=== PATIENT | male | born 1950 | race Caucasian/White ===

== ENCOUNTER → 2016-10-30 | Outpatient (CLI) | payer BC ==
[2016-10-30 18:22] LABS: Blood Urea Nitrogen 15 mg/dL (9-20); Non-African American GFR(MDRD) >60 (>60 ml/min/1.73 sqM)
--- NOTE | 2016-10-30 19:36 | CT ---
EXAMINATION TYPE: CT abdomen pelvis w con DATE OF EXAM: 10/30/2016 7:21 PM COMPARISON: NONE HISTORY: Abnormal prostate exam per patient and hematuria CT DLP: 1431.9 mGycm Automated exposure control for dose reduction was used. TECHNIQUE: Helical acquisition of images was performed from the lung bases through the pelvis. CONTRAST: Performed with Oral Contrast and with IV Contrast, patient injected with 100 mL of Omnipaque 300. FINDINGS: Lung bases are clear. There is no pleural effusion. The liver spleen pancreas appear normal. Bile gisela ts are not dilated. Gallbladder is somewhat contracted. There is no hydronephrosis. Kidneys have norm al size and contour. There is evidence of bilateral nonobstructing small renal calculi. There is a 1 cm cyst in the lower pole right kidney. There is a 2 cm hypodense rounded area on the medial upper po le left kidney that is probably an exophytic cortical cyst. I see no adrenal mass. There is no retroperitoneal adenopathy. Abdominal aorta is atheromatous. I see no intestinal wall thi ckening. There are no dilated loops. There are some prostatic calcifications. Bladder distends smooth ly. There is no sign of free fluid in the pelvis. Appendix appears normal. I see no bony destructive process. IMPRESSION: ATHEROSCLEROTIC VASCULAR DISEASE. NONOBSTRUCTING SMALL RENAL CALCULI. PROSTATIC CALCIFICATION. I DO N OT SEE A CAUSE FOR HEMATURIA. SMALL RENAL CORTICAL CYSTS. MILD SIGMOID DIVERTICULOSIS WITHOUT DIVERTI CULITIS.
== END | disposition home or self-care (01) ==
LOC: RADCTMAIN 17:34
PROVIDERS: ATTEND Urology
DX: N20.0 Calculus of kidney (principal); I70.8 Atherosclerosis of other arteries; N28.1 Cyst of kidney, acquired; N42.89 Other specified disorders of prostate; K57.30 Diverticulosis of large intestine without perforation or abscess without bleeding; Z91.048 Other nonmedicinal substance allergy status; Z91.013 Allergy to seafood; Z91.041 Radiographic dye allergy status
CPT/HCPCS: 82565; 84520; 74177; 36415; Q9967

== ENCOUNTER → 2016-11-25 | Outpatient (CLI) | payer BC ==
[2016-11-25 09:51] LABS: Blood Urea Nitrogen 21 mg/dL (9-20); Non-African American GFR(MDRD) >60 (>60 ml/min/1.73 sqM)
--- NOTE | 2016-11-25 12:19 | CT ---
EXAMINATION TYPE: CT pelvis w con DATE OF EXAM: 11/25/2016 COMPARISON: CT abdomen pelvis October 30, 2016. HISTORY: Prostate CA CT DLP: 1150.6 mGycm Automated exposure control for dose reduction was used. CONTRAST: Performed with oral and with IV Contrast, patient injected with 100 mL of Omnipaque 300. FINDINGS: Visualized liver is hypodense consistent with fatty infiltration. There is diminished right-sided cortical medullary uptake versus left side with interval passage of 6 mm calculus into proximal right ureter on axial image 16 and coronal image 36 causing mild to modera te right-sided pyelocaliectasis and proximal hydroureter. There is stable 4 mm nonobstructing lower p ole left renal calculus. Additional 4 mm nonobstructing calculus upper pole level left kidney on axia l image 4 stable. There is 2 cm exophytic simple appearing cyst medially upper pole level left kidney . Bladder wall is concentrically upper limits of normal in thickness on current study. No significant change from prior. Central zone calcification is seen in normal size prostate gland. Left-sided pelv ic phlebolith is noted. Oral contrast reaches the proximal sigmoid colon level. There is occasional diverticula in the colon. There is no suspicious small or large bowel dilatation. There is moderate calcified plaque in the visualized aorta extending into common iliac branch vessels . Mild to moderate multilevel spurring in the spine is present. There is mild to moderate disc space na rrowing and spurring in both hip joints. Multilevel facet arthropathy lower lumbar spine is seen. IMPRESSION: 1. NO WORRISOME MASS OR ADENOPATHY IS SEEN TO SUGGEST METASTATIC MALIGNANCY. 2. PROGRESSION OF 6 MM CALCULUS RIGHT KIDNEY TO PROXIMAL RIGHT URETER NOT CAUSING [id number] RI GHT-SIDED HYDRONEPHROSIS. A Yellow message has been communicated to Idris Saarh MD via the [employer] [facility] Result system on 11/25/2016 12:17 PM, Message ID [id number].
--- NOTE | 2016-11-25 15:47 | NM ---
EXAMINATION TYPE: NM bone scan whole body DATE OF EXAM: 11/25/2016 COMPARISON: CT abdomen pelvis 10/30/2016, CT pelvis 11/25/2016, CT chest 2010 HISTORY: Prostate cancer, C61 Delayed whole-body scanning was performed following the injection of 27.5 mCi Tc 99m MDP. Images acq uired 3 hours post injection. FINDINGS: There is some increased uptake in the right kidney as compared to the left. Uptake within the hands a nd wrists, feet, shoulders and knees, and spine is likely degenerative. Some mild increased uptake pr esent within the sternum. IMPRESSION: Increased uptake right kidney likely related to patient's ureteral obstruction. Indeterminate focus w ithin the sternum shows only mild uptake. Findings felt unlikely to represent metastatic disease.
== END | disposition home or self-care (01) ==
LOC: RADNMMAIN 08:47
PROVIDERS: ATTEND Urology
DX: C61 Malignant neoplasm of prostate (principal)
CPT/HCPCS: 82565; 84520; 72193; 78306; 36415; A9503; Q9967

== ENCOUNTER → 2016-11-27 | Outpatient (CLI) | payer BC ==
--- NOTE | 2016-11-27 10:29 | XR ---
EXAMINATION TYPE: XR KUB DATE OF EXAM: 11/27/2016 COMPARISON: 11/25/2016 HISTORY: Pain TECHNIQUE: One view abdominal series FINDINGS: The osseous structures are intact. The bowel gas pattern is nonspecific. Arthropathy of the hips not ed. Calcifications in pelvis likely vascular. Hypertrophic and degenerative change of the spine. There is a calcification along the L3-L4 disc space paraspinal and the right which could be within th e right ureter. Measures 3 mm in diameter. This appears to have migrated slightly distal relative to the previous exam where was within the proximal ureter. 2 mm punctate calcification overlying the low er pole the left kidney. Residual contrast within the left colon.. IMPRESSION: 1. There is a mid right ureteral calculus measuring 3 mm in diameter and 6 mm in craniocaudal dimensi on. Lower pole 2 mm left renal calculus also suspected..
== END ==
LOC: RADXRMAIN 09:57
PROVIDERS: ATTEND Urology
DX: N20.1 Calculus of ureter (principal)
CPT/HCPCS: 74000

== ENCOUNTER → 2016-12-11 | Outpatient (CLI) | payer BC ==
--- NOTE | 2016-12-11 13:23 | XR ---
EXAMINATION TYPE: XR KUB DATE OF EXAM: 12/11/2016 COMPARISON: 11/27/2016 HISTORY: Renal stone TECHNIQUE: One view abdominal series FINDINGS: The calcification adjacent to the L3-4 disc interspace is stable. Pelvic calcifications stable. Suspected punctate 3 mm lower pole left renal calculus also stable. Assessment of the right kidney li mited due to extensive overlying fecal debris. Arthropathy of the shoulders, degenerative change of the spine, and nonspecific gas pattern with no o bstruction. IMPRESSION: 1. Lower pole left renal calculus is stable 2. Right-sided paraspinal calcification or ossification is unchanged.
== END | disposition home or self-care (01) ==
LOC: RADXRMAIN 13:09
PROVIDERS: ATTEND Urology
DX: N20.0 Calculus of kidney (principal)
CPT/HCPCS: 74000

== ENCOUNTER → 2017-01-08 | Outpatient (CLI) | payer BC ==
--- NOTE | 2017-01-08 10:37 | XR ---
EXAMINATION TYPE: XR KUB DATE OF EXAM: 01/08/2017 10:28 AM CLINICAL HISTORY: Nephrolithiasis. Follow-up examination. TECHNIQUE: Single supine KUB image of the abdomen is obtained. COMPARISON: None. FINDINGS: The previously seen 3 mm left lower pole renal calculus is unchanged in location. The known right renal calculus is not visualized on today's examination and has either passed in the interim o r obscured by fecal material. Scattered gas is seen in non-distended small bowel loops. Gas and fecal material is seen in non-distended colon. Degenerative changes of the lumbosacral spine are demonstra audra as facet arthropathy, disc space narrowing, and osteophytes. The previously described calculus be tween the L3-L4 interspace is no longer present and may represent a passed right renal calculus. IMPRESSION: Unchanged 3 mm left lower pole renal calculus.
== END | disposition home or self-care (01) ==
LOC: RADXRMAIN 10:13
PROVIDERS: ATTEND Physician Assistant
DX: N20.0 Calculus of kidney (principal)
CPT/HCPCS: 74000

== ENCOUNTER → 2017-01-15 | Outpatient (CLI) | payer BC ==
--- NOTE | 2017-01-15 11:29 | US ---
EXAMINATION TYPE: US kidneys/renal and bladder DATE OF EXAM: 01/15/2017 COMPARISON: CT abdomen and pelvis October 30, 2016 CLINICAL HISTORY: R93.4 HX HYDRONEPHROSIS. History of hydronephrosis and kidney stones EXAM MEASUREMENTS: Right Kidney: 11.4 x 6.0 x 6.2 cm Left Kidney: 11.6 x 6.3 x 5.2 cm Right Kidney: lobulated contour, cystic area upper pole = 0.9 x 0.8 x 0.8cm, minimal hydronephrosis?? Left Kidney: cystic area upper pole = 2.9 x 1.9 x 2.7cm, dense echogenic area lower pole = 0.6cm Bladder: appears wnl Bilateral Jets seen: yes Technique no technologist baig 9 mm exophytic round anechoic lesion from right kidney felt to reflec t simple cyst. There are a few additional subcentimeter low dense lesions in the right kidney on CT n ot clearly seen on ultrasound. There is 6 mm lower pole calculus on coronal image [address] not clearl y seen on ultrasound. No pyelocaliectasis is evident on images saved. Scanning of bladder is felt within normal limits. There is redemonstration of exophytic 2.9 cm cyst medially upper pole level left kidney. The small no nobstructing calculus lower pole level left kidney is redemonstrated measuring 4 to 6 mm in size. IMPRESSION: Redemonstration of calculus lower pole left kidney measuring 4 mm in size. Previously visualized slig htly larger right-sided lower pole renal calculus is not clearly seen. No hydronephrosis is evident b ilaterally on current study. Bilateral distal ureter jets are visualized.
== END | disposition home or self-care (01) ==
LOC: RADUSWWP 09:35
PROVIDERS: ATTEND Urology
DX: N13.2 Hydronephrosis with renal and ureteral calculous obstruction (principal)
CPT/HCPCS: 76770

== ENCOUNTER → 2017-06-11 | Outpatient (CLI) | payer BC | END | disposition home or self-care (01) | LOC: LABWHC1 15:11 | PROVIDERS: ATTEND Radiology Radiation Oncology | DX: C61 Malignant neoplasm of prostate (principal) | CPT/HCPCS: 36415; 84153 ==

== ENCOUNTER → 2017-08-05 | Outpatient (CLI) | payer BC ==
--- NOTE | 2017-08-06 11:43 | ECHOS ---
STRESS ECHOCARDIOGRAM INDICATIONS: Chest pain. BASELINE HEART RATE: 81 BASELINE BLOOD PRESSURE: 128/53 MAXIMUM HEART RATE: 134 MAXIMUM BLOOD PRESSURE: 164/69 85% MPHR: 133 100% MPHR: 156 METS: 8.7 MAXIMUM STAGE REACHED: 3 TOTAL EXERCISE TIME: 7:15 CLINICAL INFORMATION: Patient was exercised for a total period of 7 minutes, a peak heart rate of 134 was achieved. Maximum blood pressure of 164/69 mmHg was noted. Resting EKG shows normal sinus rhythm with normal p.r.n. interval and QRS duration and normal ST-T waves. No ST- segment depression suggestive of ischemia is noted. The baseline echocardiographic images reveals normal left ventricular chamber size with normal left ventricular systolic function. In the immediate post exercise period normal increase in the wall thickness and contractility was noted. FINAL IMPRESSION: 1. This stress echocardiographic study is negative for stress-induced ischemia. 2. EKG portion of the stress test is not suggestive of ischemia. 3. Patient's exercise tolerance is normal. MMODL / IJN: [id number] /
== END | disposition home or self-care (01) ==
LOC: RADNMMAIN 09:21
PROVIDERS: ATTEND Family Medicine
DX: I20.9 Angina pectoris, unspecified (principal); Z88.8 Allergy status to other drugs, medicaments and biological substances
CPT/HCPCS: 93017; 93350

== ENCOUNTER → 2017-10-08 | Outpatient (CLI) | payer BC | END | disposition home or self-care (01) | LOC: LABWHC1 10:49 | PROVIDERS: ATTEND Radiology Radiation Oncology | DX: C61 Malignant neoplasm of prostate (principal) | CPT/HCPCS: 36415; 84153 ==

== ENCOUNTER → 2018-03-31 | Outpatient (CLI) | payer MEDICARE | END | disposition home or self-care (01) | LOC: LABWHC1 11:12 | PROVIDERS: ATTEND Radiology Radiation Oncology | DX: C61 Malignant neoplasm of prostate (principal) | CPT/HCPCS: 36415; 84153 ==

== ENCOUNTER → 2018-10-03 | Outpatient (CLI) | payer MEDICARE | LOC: LABWHC1 12:20 | PROVIDERS: ATTEND Radiology Radiation Oncology | DX: C61 Malignant neoplasm of prostate (principal); Z87.891 Personal history of nicotine dependence | CPT/HCPCS: 36415; 84153 ==

== ENCOUNTER 2019-03-10 18:38 | Inpatient (IN) | payer MEDICARE ==
--- NOTE | 2019-03-10 20:05 | ED ---
Eye Problem HPI - General Chief complaint: Eye Problems Stated complaint: rt eye vision loss Time Seen by Provider: 03/10/19 19:43 Source: patient Mode of arrival: ambulatory Limitations: no limitations - History of Present Illness Initial comments: 68-year-old male patient presents to the emergency department today for evaluation of vision loss in the right eye. Patient states around 6:05 PM he was eating dinner when he suddenly lost vision to the right eye. Patient states he is able to visualize very fuzzy forearms in the peripheral vision but his central vision is completely white. He denies any visual change of the left eye. He does wear glasses. Denies any history of similar symptoms. Denies headache, recent head injury, or history of eye surgery. Patient does have history of hypertension and diabetes. Denies fever or chills. States he has been sick recently with upper respiratory infection, states he has been coughing and sneezing a lot. Patient denies any recent rash, shortness breath, chest pain, abdominal pain, nausea, vomiting, diarrhea, constipation, back pain, numbness, tingling, dizziness, weakness, hematuria, dysuria, urinary urgency, urinary frequency, or any other complaints. - Related Data Home Medications Medication Instructions Recorded Confirmed Aspirin 81 mg PO HS 08/15/14 03/10/19 Atorvastatin [Lipitor] 40 mg PO HS 08/15/14 03/10/19 Naproxen Sodium [Aleve] 220 mg PO Q12HR PRN 08/15/14 03/10/19 Glimepiride [Amaryl] 4 mg PO BID 03/10/19 03/10/19 Losartan Potassium 100 mg PO HS 03/10/19 03/10/19 Multivitamins, Thera [Multivitamin 1 tab PO HS 03/10/19 03/10/19 (formulary)] metFORMIN HCL [Glucophage] 500 mg PO BID 03/10/19 03/10/19 Allergies Allergy/AdvReac Type Severity Reaction Status Date / Time Iodinated Contrast Media Allergy Rash/Hives Verified 03/10/19 20:03 [Iodinated Contrast Media - IV Dye] Review of Systems ROS Statement: Those systems with pertinent positive or pertinent negative responses have been documented in the HPI. ROS Other: All systems not noted in ROS Statement are negative. Past Medical History Past Medical History: Cancer, Diabetes Mellitus, Hyperlipidemia, Hypertension, Sleep Apnea/CPAP/BIPAP Additional Past Medical History / Comment(s): prostate History of Any Multi-Drug Resistant Organisms: None Reported Past Surgical History: Orthopedic Surgery Additional Past Surgical History / Comment(s): LEFT SHOULDER,VASECTOMY, REVERSAL OF VASECTOMY, right knee surgery Past Anesthesia/Blood Transfusion Reactions: No Reported Reaction Past Psychological History: No Psychological Hx Reported Smoking Status: Former smoker Past Alcohol Use History: Occasional Past Drug Use History: None Reported General Exam Limitations: no limitations General appearance: alert, in no apparent distress, other (This is a well- developed, well-nourished elderly male patient in no acute distress. Vital signs upon presentation are temperature 97.6F, pulse 68, respirations 16, blood pressure 150/70, pulse ox 96% on room air.) Eye exam: Present: PERRL, EOMI, other (Pressure to the right eye is between 16- 18 mmHg, pressure to the left eye is 14 mmHg. No conjunctival injection. No hyphema.). Absent: normal appearance, scleral icterus, conjunctival injection, nystagmus, periorbital swelling ENT exam: Present: normal exam, normal oropharynx, mucous membranes moist Respiratory exam: Present: normal lung sounds bilaterally. Absent: respiratory distress, wheezes, rales, rhonchi, stridor Cardiovascular Exam: Present: regular rate, normal rhythm, normal heart sounds. Absent: systolic murmur, diastolic murmur, rubs, gallop, clicks Neurological exam: Present: alert, oriented X3, CN II-XII intact Psychiatric exam: Present: normal affect, normal mood Skin exam: Present: warm, dry, intact, normal color. Absent: rash Course Vital Signs 03/10/19 03/10/19 03/10/19 18:55 19:15 21:42 Temperature 97.6 F Pulse Rate 68 80 65 Respiratory 16 16 18 Rate Blood Pressure 150/70 159/78 142/74 O2 Sat by Pulse 96 97 96 Oximetry Medical Decision Making - Medical Decision Making 68 year-old male patient presented to the emergency department today for a acute loss of vision to the right eye. Patient is reporting central vision loss with impaired vision in the periphery. Pressures to both eyes are normal with the right being 18 mmHg and the left being 14 mmHg. He is otherwise neurologically intact with no focal deficits. Case was discussed with the on-call can top setter Dr. Campoverde who instructs us to put in consult for Dr. Mayer and he will discuss this with him in the morning. He'll be admitted for further evaluation and monitoring. ESR and CRP are pending. - Lab Data Result diagrams: 03/10/19 21:30 03/10/19 21:30 Lab Results 03/10/19 03/10/19 03/10/19 Range/Units 21:30 21:30 21:30 WBC 4.7 (3.8-10.6) k/uL RBC 3.95 L (4.30-5.90) m/uL Hgb 12.1 L (13.0-17.5) gm/dL Hct 37.8 L (39.0-53.0) % MCV 95.8 (80.0-100.0) fL MCH 30.7 (25.0-35.0) pg MCHC 32.0 (31.0-37.0) g/dL RDW 13.1 (11.5-15.5) % Plt Count 199 (150-450) k/uL Neutrophils % (Manual) 58 % Band Neutrophils % 1 % Lymphocytes % (Manual) 26 % Monocytes % (Manual) 11 % Eosinophils % (Manual) 4 % Neutrophils # (Manual) 2.70 (1.3-7.7) k/uL Lymphocytes # (Manual) 1.22 (1.0-4.8) k/uL Monocytes # (Manual) 0.52 (0-1.0) k/uL Eosinophils # (Manual) 0.19 (0-0.7) k/uL Nucleated RBCs 0 (0-0) /100 WBC Manual Slide Review Performed PT 9.5 (9.0-12.0) sec INR 0.9 (<1.2) APTT 23.6 (22.0-30.0) sec Sodium 140 (137-145) mmol/L Potassium 3.9 (3.5-5.1) mmol/L Chloride 104 (98-107) mmol/L Carbon Dioxide 24 (22-30) mmol/L Anion Gap 12 mmol/L BUN 19 (9-20) mg/dL Creatinine 0.75 (0.66-1.25) mg/dL Est GFR (CKD-EPI)AfAm >90 (>60 ml/min/1.73 sqM) Est GFR (CKD-EPI)NonAf >90 (>60 ml/min/1.73 sqM) Glucose 155 H (74-99) mg/dL Calcium 9.7 (8.4-10.2) mg/dL Total Bilirubin 0.2 (0.2-1.3) mg/dL AST 18 (17-59) U/L ALT 34 (21-72) U/L Alkaline Phosphatase 63 (38-126) U/L Troponin I (0.000-0.034) ng/mL Total Protein 7.1 (6.3-8.2) g/dL Albumin 4.4 (3.5-5.0) g/dL 03/10/19 Range/Units 21:30 WBC (3.8-10.6) k/uL RBC (4.30-5.90) m/uL Hgb (13.0-17.5) gm/dL Hct (39.0-53.0) % MCV (80.0-100.0) fL MCH (25.0-35.0) pg MCHC (31.0-37.0) g/dL RDW (11.5-15.5) % Plt Count (150-450) k/uL Neutrophils % (Manual) % Band Neutrophils % % Lymphocytes % (Manual) % Monocytes % (Manual) % Eosinophils % (Manual) % Neutrophils # (Manual) (1.3-7.7) k/uL Lymphocytes # (Manual) (1.0-4.8) k/uL Monocytes # (Manual) (0-1.0) k/uL Eosinophils # (Manual) (0-0.7) k/uL Nucleated RBCs (0-0) /100 WBC Manual Slide Review PT (9.0-12.0) sec INR (<1.2) APTT (22.0-30.0) sec Sodium (137-145) mmol/L Potassium (3.5-5.1) mmol/L Chloride (98-107) mmol/L Carbon Dioxide (22-30) mmol/L Anion Gap mmol/L BUN (9-20) mg/dL Creatinine (0.66-1.25) mg/dL Est GFR (CKD-EPI)AfAm (>60 ml/min/1.73 sqM) Est GFR (CKD-EPI)NonAf (>60 ml/min/1.73 sqM) Glucose (74-99) mg/dL Calcium (8.4-10.2) mg/dL Total Bilirubin (0.2-1.3) mg/dL AST (17-59) U/L ALT (21-72) U/L Alkaline Phosphatase (38-126) U/L Troponin I <0.012 (0.000-0.034) ng/mL Total Protein (6.3-8.2) g/dL Albumin (3.5-5.0) g/dL - Radiology Data Radiology results: report reviewed, image reviewed CT brain without contrast was obtained. Report was reviewed in its entirety. Impression by Dr. Kaur shows mild atrophy. No acute intracranial abnormality. Two-view x-ray of the chest is obtained. Report was reviewed in its entirety. Impression by Dr. Kaur shows no active cardio pulmonary disease. Normal heart. Disposition Clinical Impression: Subjective visual disturbance of right eye Disposition: ADMITTED IP TO THIS [facility] Condition: Serious Referrals: Yuniel Armstrong MD [Primary Care Provider] - 1-2 days Decision to Admit Reason: Admit from EC Decision Date: 03/10/19 Decision Time: 22:55
[2019-03-10] MEDS ORDERED: SODIUM CHLORIDE 0.9% 500 ML 500 ML IV STA (21:05)
[2019-03-10 21:54] LABS: INR 0.9 (<1.2); Partial Thromboplastin Time 23.6 sec (22.0-30.0); Prothrombin Time 9.5 sec (9.0-12.0)
[2019-03-10 21:59] LABS: ALT 34 U/L (21-72); AST 18 U/L (17-59); African American GFR (CKD) >90 (>60 ml/min/1.73 sqM); Albumin 4.4 g/dL (3.5-5.0); Alkaline Phosphatase 63 U/L (38-126); Anion Gap 12 mmol/L; Blood Urea Nitrogen 19 mg/dL (9-20); Calcium 9.7 mg/dL (8.4-10.2); Carbon Dioxide 24 mmol/L (22-30); Chloride 104 mmol/L (98-107); Glucose 155 mg/dL (74-99); Potassium 3.9 mmol/L (3.5-5.1); Sodium 140 mmol/L (137-145); Total Bilirubin 0.2 mg/dL (0.2-1.3); Total Protein 7.1 g/dL (6.3-8.2)
--- NOTE | 2019-03-10 22:00 | CT ---
EXAMINATION TYPE: CT brain wo con DATE OF EXAM: 03/10/2019 COMPARISON: None HISTORY: loss of vision to right eye CT DLP: 1100.4 mGycm Automated exposure control for dose reduction was used. FINDINGS: There is mild cerebral atrophy. There is no mass effect nor midline shift. There is no sign of intrac ranial hemorrhage. There is no evidence of cerebral edema. The calvarium is intact. There is incomple te pneumatization of the right mastoid sinus. IMPRESSION: MILD ATROPHY. NO ACUTE INTRACRANIAL ABNORMALITY.
[2019-03-10 22:01] LABS: HCT 37.8 % (39.0-53.0); HGB 12.1 gm/dL (13.0-17.5); MCH 30.7 pg (25.0-35.0); MCV 95.8 fL (80.0-100.0); Mean Platelet Volume 7.8; Platelet Count 199 k/uL (150-450); RBC 3.95 m/uL (4.30-5.90); RDW 13.1 % (11.5-15.5); WBC 4.7 k/uL (3.8-10.6)
--- NOTE | 2019-03-10 22:02 | XR ---
EXAMINATION TYPE: XR chest 2V DATE OF EXAM: 03/10/2019 COMPARISON: NONE HISTORY: Altered mental status. Short of breath TECHNIQUE: Frontal and lateral views of the chest are obtained. FINDINGS: Heart is normal. Lungs are clear of infiltrate. There is no heart failure. There are no hi lar masses. There are chest leads. Bony thorax is intact. IMPRESSION: No active cardiopulmonary disease. Normal heart.
[2019-03-10] MEDS ORDERED: DEXAMETHASONE SOD PHOSPHATE 10 MG/ML 1 ML VIAL IV STA (22:05)
[2019-03-10 22:54] LABS: Band Neutrophils % 1 %; Eosinophils # (M) 0.19 k/uL (0-0.7); Lymphocytes # (M) 1.22 k/uL (1.0-4.8); Monocytes # (M) 0.52 k/uL (0-1.0); Neutrophils % (M) 58 %; Nucleated Red Blood Cells 0 /100 WBC (0-0); Total Cells Counted 100
[2019-03-10] MEDS ORDERED: NALOXONE 0.4 MG/ML 1 ML VIAL IV PRN (23:39)
[2019-03-11] MEDS: DEXAMETHASONE SOD PHOSPHATE 4 MG/ML 1 ML VIAL IV SCH ×2 (06:09→12:43)
--- NOTE | 2019-03-11 10:52 | US ---
EXAMINATION TYPE: US carotid duplex BILAT DATE OF EXAM: 03/11/2019 COMPARISON: NONE CLINICAL HISTORY: CVA. Blurred vision right eye EXAM MEASUREMENTS: RIGHT: Peak Systolic Velocity (PSV) cm/sec ----- Right CCA: 87.3 ----- Right ICA: 110 ----- Right ECA: 168 ICA/CCA ratio: 1.26 RIGHT: End Diastole cm/sec ----- Right CCA: 18.4 ----- Right ICA: 36.2 ----- Right ECA: 19.1 LEFT: Peak Systolic Velocity (PSV) cm/sec ----- Left CCA: 79.7 ----- Left ICA: 113 ----- Left ECA: 119 ICA/CCA ratio: 1.42 LEFT: End Diastole cm/sec ----- Left CCA: 18.8 ----- Left ICA: 40.4 ----- Left ECA: 19.0 VERTEBRALS (direction of flow): Common right,, right ECA., Right Vertebral: Antegrade Left Vertebral: Antegrade Rhythm: Normal Moderate plaque right bifurcation. Mild plaque left bifurcation. Increased velocities right ECA IMPRESSION: 1. I DO NOT SEE A HEMODYNAMICALLY SIGNIFICANT STENOSIS IN EITHER COMMON OR INTERNAL CAROTID ARTERY. 2. ELEVATED FLOW VELOCITY, RIGHT ECA. Criteria for Assigning % of Stenosis / Diameter reduction (Estimation based on the indirect measurements of the internal carotid artery velocities (ICA PSV). 1. Normal (no stenosis)=ICA PSV < 125 cm/s: ratio < 2.0: ICA EDV<40 cm/s. 2. Less than 50% stenosis=ICA PSV < 125 cm/s: ratio < 2.0: ICA EDV<40 cm/s. 3. 50 to 69% stenosis=ICA PSV of 125 to 230 cm/s: ration 2.0 ? 4.0: ICA EDV 40-100 cm/s. 4. Greater than 70% stenosis to near occlusion= ICA PSV > 230 cm/s: ratio > 4.0: ICA EDV > 100 cm/s. 5. Near occlusion= ICA PSV velocities may be low or undetectable: variable ratio and ICA EDV. 6. Total occlusion=unable to detect flow.
[2019-03-11 11:52] LABS: Glucose,Whole Blood 309 mg/dL (75-99)
[2019-03-11] MEDS ORDERED: INSULIN ASPART (NovoLOG) 100 UNIT/ML VIAL SQ SCH (12:30)
[2019-03-11] MEDS ORDERED: NAPROXEN 250 MG TAB PO PRN (13:48)
--- NOTE | 2019-03-11 15:00 | HP ---
HISTORY AND PHYSICAL CHIEF COMPLAINT: Sudden loss of vision in the right eye. HISTORY OF PRESENT ILLNESS: This is another admission for this 68-year-old white male. He has well controlled type 2 NIDDM and hypertension. He was eating dinner when he suddenly lost vision in the right eye. He described it as almost a total loss. There is no redness. There are portions in his visual field where he sees white. He can see things to the periphery using his right eye. When he is in a darker or low light situation, he thinks he sees a little bit better. This is all peripheral. He has never had eye problems and he gets eye exams regular. He has not had any pain. He has had no other neurologic symptoms such as any cranial nerve or sensory motor sides. He has had no headache. The eye is not painful or tender. REVIEW OF SYSTEMS: He has had no other complaints or problems. He has had no chest pain, palpitations, abdominal pain, nausea, vomiting, hematemesis, melena, hematochezia, colitis, diverticulosis, diverticulitis, hemorrhoids, jaundice, hepatitis, cirrhosis, etc. He has had no renal failure, hematuria, dysuria, frequency, etc. He has had CA of the prostate. He has not had any significant orthopedic problems. Past medical history, family history and personal and social histories reveal that he is allergic to IODINE. He is on atorvastatin 40 at bedtime, 0.25 at bedtime p.r.n., glimepiride 4 mg twice a day, losartan 100 mg once a day, metformin 500 mg twice a day, bicalutamide 50 mg once a day, vitamin D and calcium and Aleve. Past medical history, family history, personal and social histories are otherwise unremarkable. He has had no recurrence or sequelae of his prostate disease, which was treated with external beam radiation. He has had a procedure on his left rotator cuff in the past, vasectomy and a T and A. He used to smoke, but has stopped. He drinks alcohol moderately, but not excessively. PHYSICAL EXAMINATION: Blood pressure is 120/84 with a pulse 64, respirations 20 and he is afebrile. GENERAL: He appeared to be well developed, well nourished, no acute distress. Skin color is normal. Skin is warm, dry. Lymph nodes not enlarged. Head, ears, eyes, nose, mouth, and throat are unremarkable. Pupils were equal, round, and reactive to light. Fundi could not be seen. Extraocular movements are intact. Eyeballs are nontender. Neck is supple. Carotids are normal. There are no bruits. Chest is clear to auscultation and percussion. Cardiac exam demonstrates normal sinus rhythm with a grade 1/6 systolic murmur. There was no diastolic component. Abdomen is soft, nontender without visceromegaly or masses. Bowel sounds are present. Extremities are normal. Neurologically, he is intact. IMPRESSION: 1. Sudden visual loss, right eye, rule out retinal hemorrhage, retinal detachment, optic neuritis, ischemia of the optic nerve. 2. Well controlled non-insulin dependent diabetes mellitus. 3. Hypertension. 4. History of carcinoma of prostate. PLAN: 1. Bed rest. 2. Frequent monitoring of his visual changes and neurologic status. 3. Decadron IV. 4. Consult with Neurology and Ophthalmology. MMODL / IJN: [id number] /
--- NOTE | 2019-03-11 15:14 | PN ---
PROGRESS NOTE DATE OF SERVICE: 03/11/2019 CHIEF COMPLAINT: Amblyopia, right eye. HISTORY OF PRESENT ILLNESS: This gentleman is doing about the same. Vision has not seemed to have improved nor deteriorated in the right eye since admission. PHYSICAL EXAMINATION: Pupils equal, round and reactive and extraocular movements are intact. Carotids normal. Chest is clear. Cardiac exam is unchanged. Neurologically, he is intact. IMPRESSION: 1. Sudden loss of vision in the right eye, etiology unknown. 2. Type 2 non-insulin dependent diabetes mellitus. 3. Hypertension. PLAN: Await Ophthalmology evaluation. When he was in the emergency room, Ophthalmology was contacted and had requested that he be admitted to me and that they would see him today. MMODL / IJN: [id number] /
[2019-03-11 15:30] VITALS: BP 109/62; PULSE 70; RESP 16; TEMP 98
[2019-03-11 17:32] LABS: Hemoglobin A1C 7.8 % (4.0-6.0)
--- NOTE | 2019-03-11 18:00 | ECHOF ---
Referral Reason:CVA, murmur MEASUREMENTS -------- HEIGHT: 165.1 cm WEIGHT: 101.2 kg BP: RVIDd: 3.2 cm (< 3.3) IVSd: 1.1 cm (0.6 - 1.1) LVIDd: 4.0 cm (3.9 - 5.3) LVPWd: 1.2 cm (0.6 - 1.1) IVSs: 1.4 cm LVIDs: 2.3 cm LVPWs: 1.6 cm LAESV Index (A-L): 12.78 ml/m Ao Diam: 3.7 cm (2.0 - 3.7) AV Cusp: 1.8 cm (1.5 - 2.6) LA Diam: 3.3 cm (2.7 - 3.8) MV EXCURSION: 9.371 mm (> 18.000) MV EF SLOPE: 51 mm/s (70 - 150) EPSS: 1.0 cm MV E Yoseph: 0.79 m/s MV DecT: 256 ms MV A Yoseph: 0.72 m/s MV E/A Ratio: 1.10 RAP: 5.00 mmHg RVSP: 19.66 mmHg FINDINGS -------- Sinus rhythm. This was a technically good study. The left ventricular size is normal. Left ventricular wall thickness is normal. Overall left vent ricular systolic function is normal with, an EF between 55 - 60 %. The diastolic filling pattern is normal for the age of the patient 7.74. The right ventricle is normal in size. The left atrial size is normal. Normal LA size by volume 22+/-6 ml/m2. The right atrial size is normal. Interatrial and interventricular septum intact. The aortic valve is trileaflet and appears structurally normal. The mitral valve is normal. There is trace mitral regurgitation. The tricuspid valve appears structurally normal. Trace tricuspid regurgitation present. Right emerald tricular systolic pressure is normal at < 35 mmHg. There is no pulmonic regurgitation present. The aortic root size is normal. Normal inferior vena cava with normal inspiratory collapse consistent with estimated right atrial pre ssure of 5 mmHg. There is no pericardial effusion. CONCLUSIONS -------- 1. Sinus rhythm. 2. This was a technically good study. 3. The left ventricular size is normal. 4. Left ventricular wall thickness is normal. 5. Overall left ventricular systolic function is normal with, an EF between 55 - 60 %. 6. The diastolic filling pattern is normal for the age of the patient 7.74 7. The right ventricle is normal in size. 8. The left atrial size is normal. 9. Normal LA size by volume 22+/-6 ml/m2. 10. The right atrial size is normal. 11. Interatrial and interventricular septum intact. 12. The aortic valve is trileaflet and appears structurally normal. 13. The mitral valve is normal. 14. There is trace mitral regurgitation. 15. The tricuspid valve appears structurally normal. 16. Trace tricuspid regurgitation present. 17. Right ventricular systolic pressure is normal at < 35 mmHg. 18. There is no pulmonic regurgitation present. 19. The aortic root size is normal. 20. Normal inferior vena cava with normal inspiratory collapse consistent with estimated right atrial pressure of 5 mmHg. 21. There is no pericardial effusion. CLINICAL NURSE SPECIALIST: Abby Loera RDCS
[2019-03-11] MEDS ORDERED: LOSARTAN 50 MG TAB PO SCH (21:00)
[2019-03-11] MEDS ORDERED: GLIMEPIRIDE 4 MG TAB PO SCH (21:00)
[2019-03-11] MEDS ORDERED: ATORVASTATIN 40 MG TAB PO SCH (21:00)
[2019-03-11] MEDS ORDERED: ASPIRIN 81 MG PO SCH (21:00)
[2019-03-12] MEDS ORDERED: INSULIN DETEMIR (LEVEMIR) 100 UNIT/ML SYR SQ SCH (07:00)
--- NOTE | 2019-03-12 22:25 | DS ---
DISCHARGE SUMMARY CHIEF COMPLAINT: Loss of vision of the right eye. HISTORY OF PRESENT ILLNESS AND PHYSICAL EXAM: Details of this man's history and physical can be found in the initial workup. LABORATORY STUDIES: While he was in the hospital, he had laboratory studies, details of which can be found in the laboratory section of his chart. COURSE IN HOSPITAL: After admission, he was placed on bedrest and underwent frequent evaluation for his neurologic status, vision and vital signs. His vision remains more or less the same. When admitted, ophthalmology indicated that they would see him the following day. When they did not and there was no neurology available either, decision was made to transfer him to a tertiary hospital and it was arranged for him to go to [facility]. FINAL DIAGNOSES: 1. Sudden and-complete loss of vision in the right eye. 2. ? retinal artery occlusion. 3. History of hypertension. 4. History of type 2 NIDDM. OPERATIONS: None. CONSULTATIONS: Neurology and Ophthalmology. MMSHANNA / FIORELLA: [id number] /
== END 2019-03-11 16:20 | disposition short-term general hospital (02) | DRG 125 ==
LOC: EC 18:38 → 3SCARD 23:44
PROVIDERS: ADMIT Family Medicine; ATTEND Family Medicine
DX: H54.61 Unqualified visual loss, right eye, normal vision left eye (principal); H34.9 Unspecified retinal vascular occlusion; E11.9 Type 2 diabetes mellitus without complications; E78.5 Hyperlipidemia, unspecified; G47.30 Sleep apnea, unspecified; I10 Essential (primary) hypertension; Z79.899 Other long term (current) drug therapy; Z79.82 Long term (current) use of aspirin; Z79.84 Long term (current) use of oral hypoglycemic drugs; Z85.46 Personal history of malignant neoplasm of prostate; Z87.891 Personal history of nicotine dependence; Z91.041 Radiographic dye allergy status
CPT/HCPCS: 36415; 70450; 71046; 80053; 83036; 84484; 85025; 85610; 85652; 85730; 86038; 86140; 93005; 93306; 93880; 96361; 96374; 99285

== ENCOUNTER → 2019-04-03 | Outpatient (CLI) | payer MEDICARE | END | disposition home or self-care (01) | LOC: LABWHC1 09:13 | PROVIDERS: ATTEND Radiology Radiation Oncology | DX: C61 Malignant neoplasm of prostate (principal); Z79.818 Long term (current) use of other agents affecting estrogen receptors and estrogen levels; Z87.891 Personal history of nicotine dependence | CPT/HCPCS: 36415; 84153 ==

== ENCOUNTER → 2019-04-04 | Outpatient (CLI) | payer MEDICARE ==
--- NOTE | 2019-04-04 11:24 | US ---
EXAMINATION TYPE: US gallbladder DATE OF EXAM: 04/04/2019 COMPARISON: NONE CLINICAL HISTORY: R10.11 Right upper quadrant pain. RUQ pain, NPO EXAM MEASUREMENTS: Liver Length: 14.7 cm Gallbladder Wall: 0.2 cm Right Kidney: 10.7 x 5.8 x 6.3 cm Pancreas: Obscured by bowel gas Liver: There is increased echogenicity of the hepatic parenchyma with diminished visualization of th e portal triads most commonly relating to hepatic steatosis and limiting evaluation for underlying he patic masses. Gallbladder: wnl Evidence for sonographic Rodríguez's sign: neg CBD: Obscured by overlying bowel gas Right Kidney: Upper lateral probable cystic appearing lesion = 0.8 x 0.7 x 0.8 although this is subc entimeter and too small to accurately characterize as there is no definitive increased or transmissio n. The right kidney contour appears lobular. IMPRESSION: 1. No sonographic evidence of cholelithiasis nor acute cholecystitis. 2. Sonographic findings most commonly related to hepatic steatosis. Correlate with liver function kvng ts. 3. Too small to accurately characterize right renal lesion, favored to represent a small cyst. Lobula r contour of the kidney may represent persistent lobulation or multifocal prior scarring. 4. Obscuration of the pancreas by overlying bowel gas.
== END | disposition home or self-care (01) ==
LOC: RADUSWWP 10:47
PROVIDERS: ATTEND Family Medicine
DX: R10.11 Right upper quadrant pain (principal); Z91.041 Radiographic dye allergy status
CPT/HCPCS: 76705

== ENCOUNTER → 2020-01-03 | Outpatient (CLI) | payer MEDICARE | END | disposition home or self-care (01) | LOC: LABWHC1 07:53 | PROVIDERS: ATTEND Radiology Radiation Oncology | DX: C61 Malignant neoplasm of prostate (principal); Z79.818 Long term (current) use of other agents affecting estrogen receptors and estrogen levels; Z87.891 Personal history of nicotine dependence | CPT/HCPCS: 36415; 84153 ==

== ENCOUNTER 2020-01-24 06:38 | Day surgery (SDC) | payer MEDICARE ==
[~2020-01-24 06:38] MED LIST: LACTATED RINGERS 1,000 ML IV SCH
[2020-01-24 07:14] LABS: Glucose,Whole Blood 101 mg/dL (75-99)
[2020-01-24] MEDS ORDERED: LIDOCAINE 1% INJ 10MG/ML (20 ML MDV) ONE (07:33)
[2020-01-24] MEDS ORDERED: PROPOFOL 10 MG/ML 20 ML VIAL IV ONE (07:33)
--- NOTE | 2020-01-24 08:07 | P.PCN ---
Date of Procedure: 01/24/20 Procedure(s) Performed: BRIEF HISTORY: Patient is a 69-year-old pleasant male scheduled for an elective colonoscopy as a part of evaluation of prior history of colon polyps and family history of colon cancer. His last colonoscopy was 5 years ago. PROCEDURE PERFORMED: Colonoscopy. PREOPERATIVE DIAGNOSIS: History of colon polyps and family history of colon cancer. IV sedation per Anesthesia. PROCEDURE: After informed consent was obtained, the patient, was brought into the endoscopy unit. IV sedation was administered by Anesthesia under continuous monitoring. Digital rectal examination was normal. Initially the Olympus CF-160 flexible video colonoscope was then inserted in the rectum, gradually advanced into the cecum without any difficulty. Careful examination was performed as the scope was gradually being withdrawn. Ileocecal valve and the appendiceal orifice were visualized and appeared normal. Prep was excellent. Mucosa of the cecum, ascending colon, transverse colon, descending colon, sigmoid colon, and rectum appeared normal. Scattered left-sided diverticulosis seen. Retroflexion was performed in the rectum and scattered telangiectasis noted in the distal rectum consistent with mild radiation proctitis.. The patient tolerated the procedure well. IMPRESSION: Normal-appearing colon from rectum to cecum no evidence of colorectal neoplasia Scattered left-sided diverticulosis . Mild radiation proctitis RECOMMENDATIONS: Findings of this examination were discussed with the patient as well as his family. He was advised to have a repeat surveillance colonoscopy in 5 years from now because of the prior history of colon polyps and family history of colon cancer.
[2020-01-24 08:10] VITALS: RESP 16; TEMP 97.4
[2020-01-24 08:19] LABS: Glucose,Whole Blood 94 mg/dL (75-99)
[2020-01-24 08:22] VITALS: BP 138/72; PULSE 71
== END 2020-01-24 08:39 | disposition home or self-care (01) ==
LOC: ORWHC2ENDO 06:38
PROVIDERS: ATTEND Internal Medicine Gastroenterology
DX: Z12.11 Encounter for screening for malignant neoplasm of colon (principal); K57.30 Diverticulosis of large intestine without perforation or abscess without bleeding; K62.7 Radiation proctitis; Y84.2 Radiological procedure and radiotherapy as the cause of abnormal reaction of the patient, or of later complication, without mention of misadventure at the time of the procedure; Z86.010 Personal history of colon polyps; Z80.0 Family history of malignant neoplasm of digestive organs; I10 Essential (primary) hypertension; G47.33 Obstructive sleep apnea (adult) (pediatric); E11.9 Type 2 diabetes mellitus without complications; Z91.041 Radiographic dye allergy status; Z79.82 Long term (current) use of aspirin; Z79.02 Long term (current) use of antithrombotics/antiplatelets; Z79.84 Long term (current) use of oral hypoglycemic drugs; Z79.899 Other long term (current) drug therapy; Z90.89 Acquired absence of other organs; Z98.890 Other specified postprocedural states; Z98.52 Vasectomy status; Z85.46 Personal history of malignant neoplasm of prostate; Z86.73 Personal history of transient ischemic attack (TIA), and cerebral infarction without residual deficits
CPT/HCPCS: J2001; J2704; G0105; 45378

== ENCOUNTER 2020-07-03 07:55 | Day surgery (SDC) | payer MEDICARE ==
[2020-06-28 14:53] VITALS: BMI 34.7
[~2020-07-03 07:55] MED LIST changes: +DEXAMETHASONE SOD PHOSPHATE 4 MG/ML 1 ML VIAL IV ONE; +DEXAMETHASONE SOD PHOSPHATE 4 MG/ML 1 ML VIAL IV PRN; +FAMOTIDINE 20 MG/2 ML VIAL IV PRN; +HYDROmorphone 0.5 MG/0.5 ML SYRINGE IVP PRN; +LIDOCAINE 1% (10MG/ML) FOR IV START INTRADERMA PRN; +MIDAZOLAM 2 MG/2 ML VIAL IV PRN; +ONDANSETRON 4 MG/2 ML VIAL IVP PRN
[2020-07-03 09:04] VITALS: TEMP 96.9
[2020-07-03 09:15] LABS: Glucose,Whole Blood 117 mg/dL (75-99)
[2020-07-03] MEDS ORDERED: ONDANSETRON 4 MG/2 ML VIAL IVP ONE (09:21)
--- NOTE | 2020-07-03 10:33 | P.OP ---
Date of Procedure: 07/03/20 Preoperative Diagnosis: Left piriform sinus larynx lesion Postoperative Diagnosis: Same Procedure(s) Performed: Microlaryngoscopy with biopsy left piriform sinus/laryngeal lesion Anesthesia: IGNACIAA Surgeon: Yovanny Hines Estimated Blood Loss (ml): 2 Pathology: other (Left piriform sinus/laryngeal lesion) Condition: stable Disposition: PACU Indications for Procedure: This is a 69-year-old white male with a chronic left-sided sore throat and left otalgia. He had CT prior to coming to the office which showed a left-sided laryngeal mass. Plus laryngoscopy in the office reveals a left-sided laryngeal mass in the piriform sinus and in the area of the aryepiglottic fold on the left Operative Findings: Patient has a diffuse lesion of the left side of the larynx involving the entire piriform sinus and filling the piriform sinus as well as up onto the lateral hypopharyngeal wall and involving the left arytenoid. This is sessile but exophytic especially on the arytenoid where there was tissue approximately 1 cm pedunculated which was actually removed with biopsy. This is pink but with some minimal white exudate area his vocal cord mobility was normal preoperatively. Total size of lesion approximate 3 cm. note that the patient was originally s cheduled for triple endoscopy but his insurance denied the bronchoscopy and esophagoscopy and the patient therefore elected to not proceed with this because insurance would not cover this Description of Procedure: The patient brought in the operative suite and placed in a supine position. The patient underwent induction of general anesthesia with oral endotracheal intuba tion without difficulty. The patient was prepped and draped in usual aseptic fashion. Tooth guard was placed and direct laryngoscopy was performed with systematic evaluation of the base of tongue vallecula both piriform sinuses post cricoid area and endolarynx. With the larynx in good visualization laryngoscope was placed in suspension and size microscope was brought in position for visualization of the lesion. Multiple biopsies were taken with debridement of the bulky portion of the lesion on the left arytenoid and hemostasis was gained spontaneously. There was good hemostasis noted. The patient was suctioned in the larynx and then allowed to emerge from general anesthesia having tolerated procedure well patient was extubated in the operating suite and transferred to the postop recovery area in satisfactory condition.
[2020-07-03] MEDS ORDERED: KETOROLAC 15 MG/ML 1 ML VIAL IVP ONE (10:38)
[2020-07-03 11:53] VITALS: RESP 16
[2020-07-03 12:03] VITALS: BP 132/75; PULSE 67
== END 2020-07-03 12:45 | disposition home or self-care (01) ==
LOC: OR 07:55
PROVIDERS: ATTEND Otolaryngology
DX: C32.9 Malignant neoplasm of larynx, unspecified (principal); I10 Essential (primary) hypertension; E78.5 Hyperlipidemia, unspecified; G47.33 Obstructive sleep apnea (adult) (pediatric); E11.9 Type 2 diabetes mellitus without complications; I69.398 Other sequelae of cerebral infarction; H54.61 Unqualified visual loss, right eye, normal vision left eye; Z91.041 Radiographic dye allergy status; Z79.02 Long term (current) use of antithrombotics/antiplatelets; Z79.84 Long term (current) use of oral hypoglycemic drugs; Z79.899 Other long term (current) drug therapy; Z91.013 Allergy to seafood; Z90.89 Acquired absence of other organs; Z80.3 Family history of malignant neoplasm of breast; Z80.1 Family history of malignant neoplasm of trachea, bronchus and lung; Z82.61 Family history of arthritis; Z87.891 Personal history of nicotine dependence; Z79.82 Long term (current) use of aspirin
CPT/HCPCS: 88305; 88342; 88341; 31536; J1100; J2405; J0690; J1885

== ENCOUNTER → 2020-07-13 | Outpatient (CLI) | payer MEDICARE ==
--- NOTE | 2020-07-16 06:24 | PE ---
EXAMINATION TYPE: PET CT fusion skull to thigh DATE OF EXAM: 07/13/2020 COMPARISON: Outside CT neck June 04, 2020 HISTORY: Head and neck cancer, initial staging study . Left laryngeal cancer diagnosed recently. Hist ory of prostate cancer 2017. TECHNIQUE: Following the intravenous administration of 9.9 mCi of F-18 FDG, whole body images are pe rformed from the skull base to the midthigh. Images are reviewed on the computer in the coronal, axi al, and sagittal planes. Reconstructed rotating images are created on independent workstation and re viewed on the computer. A localization and attenuation correction CT is performed in conjunction wi th the PET scan. Blood glucose level equals 93. SCAN: Initial Scan FINDINGS: SKULL BASE AND NECK: At the level of the hyoid bone left piriform sinus shows persistent abnormal co ncentric soft tissue with hypermetabolic uptake, amount of soft tissue slightly less prominent than o utside CT axial image 33. Subcentimeter focus axial image 53 current study with abnormal hypermetabol ic uptake, max SUV is 7.19s. Inferior to this there is abnormal left lateral adenopathy adjacent to the left common carotid artery at level of vocal cords redemonstrated measuring 2.1 x 2.1 cm size image 67, Max SUV is 15.21. Finally there is suspicious 8 mm solid nodule in the posterior superficial inferior aspect right paro tid gland axial image [address] image 50, abnormal hypermetabolic uptake is pres ent, max SUV is 5.00. CHEST, MEDIASTINUM, AND HILAR REGION: Suspicious 1.9 x 1.6 cm right hilar lymph node axial image 96, max SUV is 4.65. Additional prominent but subcentimeter prevascular and paracarinal lymph nodes, for reference there i s 1.6 x 1.0 cm paracarinal lymph node axial image 91. Mild hypermetabolic uptake, max SUV is 3.02. ABDOMEN AND PELVIS: There is some misregistration. There is nonspecific scattered bowel uptake. Most prominent uptake in the rectum. Correlate clinically. Some increased uptake corresponds to vague soft tissue in the subcutaneous fat of the lower abdomen, possible soft tissue infection or cellulitis. C orrelate clinically. OSSEOUS STRUCTURES: Mild increased uptake right shoulder level presumed inflammatory. No suspicious h ypermetabolic uptake. OTHER CT: Mild/moderate calcified plaque bilateral carotid bulb level. Flame-shaped subareolar gyneco mastia bilaterally. Mild cardiomegaly. Low lung volumes. Exophytic 2.9 cm in walled cyst medially left kidney upper pole level. There are 2 lower pole left re nal calculi measuring up to 8 mm in size axial image 168. [id number] calcified plaque abdominal aorta extends into branch vessels. IMPRESSION: Confirmation of known malignancy left piriform sinus level. Abnormal left neck adenopathy . Suspicious lesion inferior posterior superficial right parotid gland. Nonspecific mediastinal lymph nodes favor inflammatory etiology. No abdominal or osseous metastatic disease.
== END | disposition home or self-care (01) ==
LOC: RADPETMAIN 08:05
PROVIDERS: ATTEND Otolaryngology
DX: C32.8 Malignant neoplasm of overlapping sites of larynx (principal)
CPT/HCPCS: 78815; A9552

== ENCOUNTER → 2020-07-15 | Outpatient (CLI) | payer MEDICARE | END | disposition home or self-care (01) | LOC: LABWHC1 08:46 | PROVIDERS: ATTEND Radiology Radiation Oncology | DX: C61 Malignant neoplasm of prostate (principal); Z87.891 Personal history of nicotine dependence; Z79.818 Long term (current) use of other agents affecting estrogen receptors and estrogen levels | CPT/HCPCS: 36415; 84153 ==

== ENCOUNTER 2020-07-31 12:10 | Day surgery (SDC) | payer MEDICARE ==
[2020-07-31 12:31] VITALS: BP 144/76; PULSE 66; RESP 16; TEMP 98
--- NOTE | 2020-07-31 14:37 | US ---
EXAMINATION TYPE: US FNA first lesion DATE OF EXAM: 07/31/2020 HISTORY: Right parotid mass. FINDINGS: Maximal barrier technique was utilized. Hand hygiene achieved with soap and water and alco hol-based hand rub. The skin overlying a suitable path to the patient's mass in the right parotid gla nd was localized with ultrasound and the overlying skin prepped and draped. Ultrasound was utilized with sterile technique. Lidocaine was used for local anesthesia. Under direct ultrasound guidance a 25-gauge needle was advanced into the lesion and aspirated specimen submitted to cytology, using daisy lar technique a 23-gauge needle was subsequently advanced under ultrasound guidance and aspirated spe cimen submitted to cytology. Following the procedure, hemostasis achieved and the patient is discharg ed in stable condition without complication. IMPRESSION:STATUS POST ULTRASOUND GUIDED FINE-NEEDLE ASPIRATION BIOPSY OF right parotid MASS, PATHOLO GY IS PENDING. THIS PROCEDURE IS PERFORMED BY THE UNDERSIGNED.
== END 2020-07-31 14:05 | disposition home or self-care (01) ==
LOC: RADPROMAIN 12:10
PROVIDERS: ATTEND Otolaryngology
DX: K11.8 Other diseases of salivary glands (principal); C32.9 Malignant neoplasm of larynx, unspecified; Z91.041 Radiographic dye allergy status; Z91.013 Allergy to seafood
CPT/HCPCS: 10005; 88173; 88305

== ENCOUNTER → 2020-08-06 | Outpatient (CLI) | payer MEDICARE ==
--- NOTE | 2020-08-06 14:44 | CT ---
EXAMINATION TYPE: CT chest w con DATE OF EXAM: 08/06/2020 COMPARISON: 09/25/2010 and PET/CT to 621 HISTORY: 69-year-old male C76.0, Throat CA, abnormal PET TECHNIQUE: Contiguous axial scanning of the chest after the administration of 100 mL of Isovue 300. Coronal/sagittal reconstructions performed. CT DLP: 543mGycm. Automatic exposure control utilized for a dose reduction. FINDINGS: Heart normal size without pericardial effusion. Ectatic aortic root at 3.9 cm and mildly aneurysmal ascending aorta 4.0 cm (versus 3.9 cm on 1). Mild atherosclerotic arch calcifications. Bovine configuration to the aortic arch. Nonenlarged mediastinal lymph nodes are present, largest measuring 8 mm in the precarinal region. No thoracic lymphadenopathy by CT size criteria. Mild bilateral gynecomastia. Partially visualized enlarged 2.3 cm left lower neck lymph node. Stable 3 mm right upper lobe calcified granuloma, axial image 18. Stable 4 mm anterior right midlung nodule along the minor fissure on axial image 30. No consolidation or pleural effusion. Moderate atherosclerotic calcifications in the visualized upper abdominal aorta. Exophytic 2.9 cm cys t medial left kidney. Mild to moderate stool burden. Bones: Moderate degenerative disc disease mid to lower thoracic spine. No osseous destructive process seen. IMPRESSION: 1. No suspicious thoracic or hilar lymphadenopathy identified. PET/CT findings suggest reactive/post inflammatory uptake. A couple pulmonary nodules are stable back to 2010 compatible with a benign etio logy. 2. Partially visualized enlarged 2.3 cm metastatic lymph node at the left lower neck. 3. 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
== END ==
LOC: RADCTMAIN 12:43
PROVIDERS: ATTEND Internal Medicine Hematology & Oncology
DX: C14.0 Malignant neoplasm of pharynx, unspecified (principal); C77.0 Secondary and unspecified malignant neoplasm of lymph nodes of head, face and neck; R91.8 Other nonspecific abnormal finding of lung field; I71.2 Thoracic aortic aneurysm, without rupture
CPT/HCPCS: 71260

== ENCOUNTER → 2020-12-13 | Outpatient (CLI) | payer MEDICARE ==
--- NOTE | 2020-12-13 16:18 | PE ---
Nuclear medicine PET/CT HISTORY: Head and neck carcinoma, C 76.0, subsequent Patient received 12.4 mCi F-18 FDG intravenously and delayed scanning was performed from the skull ba se to the mid thighs. A localization and attenuation correction CT scan was performed. Small field-of -view imaging was obtained. Correlation to prior nuclear medicine PET/CT 07/13/2020 Chest and neck: The previously identified hypermetabolic uptake noted within the supraclavicular sandra on on the left, piriform sinus are no longer seen. There is no evident adenopathy. The lungs show no mass. There is no pleural or pericardial effusion. No mediastinal, axillary, or hilar adenopathy. Abdomen shows no suspicious uptake. There is no adrenal mass, no evident liver mass or ascites, no re troperitoneal adenopathy. Within the subcutaneous fat in the right lower quadrant and left lower quad rant there is some small focal areas of hypermetabolic uptake which may be due to subcutaneous inject ions, correlate, similar findings present on prior exam. Osseous structures show no suspicious uptake. Degenerative disc disease and facet arthropathy changes in the lower lumbar spine. impression: There is interval improvement in the abnormal uptake seen on previous exam within the nec k.
== END | disposition home or self-care (01) ==
LOC: RADPETMAIN 09:38
PROVIDERS: ATTEND Internal Medicine Hematology & Oncology
DX: C76.0 Malignant neoplasm of head, face and neck (principal)
CPT/HCPCS: 78815; A9552

== ENCOUNTER → 2021-02-20 | Outpatient (CLI) | payer MEDICARE ==
--- NOTE | 2021-02-20 09:40 | US ---
EXAMINATION TYPE: US thyroid st tissue head/neck DATE OF EXAM: 02/20/2021 COMPARISON: PET CT 12/13/2020 and ultrasound 07/31/20 CLINICAL HISTORY: 70-year-old male K11.8 Right parotid nodule. History of "throat" cancer. Hx left pa rotid nodule, seen on previous CT, PET scan, US. Patient had chemo. Patient says he feels better. Technique: Multiple sonographic images of the bilateral neck are obtained. FINDINGS: NODULES RIGHT: # of nodules measured on right: 0 LEFT: # of nodules measured on left: 0 Bilateral neck scanned, no evidence of lymphadenopathy. The right parotid nodule seen previously not seen today. No masses seen on right side. IMPRESSION: The previously seen right parotid nodule is not clearly identified on the current exam. No suspicious nodularity seen on either side of the neck.
== END | disposition home or self-care (01) ==
LOC: RADUSWWP 07:34
PROVIDERS: ATTEND Otolaryngology
DX: K11.8 Other diseases of salivary glands (principal); Z85.21 Personal history of malignant neoplasm of larynx; Z85.858 Personal history of malignant neoplasm of other endocrine glands
CPT/HCPCS: 76536

== ENCOUNTER → 2021-03-27 | Outpatient (CLI) | payer MEDICARE | END | disposition home or self-care (01) | LOC: LABWHC1 11:52 | PROVIDERS: ATTEND Radiology Radiation Oncology | DX: Z08 Encounter for follow-up examination after completed treatment for malignant neoplasm (principal); C77.9 Secondary and unspecified malignant neoplasm of lymph node, unspecified; C61 Malignant neoplasm of prostate; C13.2 Malignant neoplasm of posterior wall of hypopharynx; Z98.52 Vasectomy status; Z79.818 Long term (current) use of other agents affecting estrogen receptors and estrogen levels; Z87.891 Personal history of nicotine dependence | CPT/HCPCS: 36415; 84153 ==

== ENCOUNTER → 2021-09-30 | Outpatient (CLI) | payer MEDICARE | END | disposition home or self-care (01) | LOC: LABWHC1 08:41 | PROVIDERS: ATTEND Radiology Radiation Oncology | DX: C77.9 Secondary and unspecified malignant neoplasm of lymph node, unspecified (principal); C61 Malignant neoplasm of prostate; C13.2 Malignant neoplasm of posterior wall of hypopharynx; Z87.891 Personal history of nicotine dependence; Z98.52 Vasectomy status; Z79.818 Long term (current) use of other agents affecting estrogen receptors and estrogen levels; Z08 Encounter for follow-up examination after completed treatment for malignant neoplasm | CPT/HCPCS: 36415; 84153 ==

== ENCOUNTER 2021-10-01 10:47 | Day surgery (SDC) | payer MEDICARE ==
[2021-09-30 11:19] VITALS: BMI 34.1
[~2021-10-01 10:47] MED LIST changes: -DEXAMETHASONE SOD PHOSPHATE 4 MG/ML 1 ML VIAL IV ONE; -HYDROmorphone 0.5 MG/0.5 ML SYRINGE IVP PRN; -MIDAZOLAM 2 MG/2 ML VIAL IV PRN; +fentaNYL (PF) 50 MCG/ML 2 ML AMP IV PRN
[2021-10-01] MEDS ORDERED: LACTATED RINGERS 1,000 ML IV ONE ×2 (11:50)
[2021-10-01 12:09] VITALS: TEMP 97
[2021-10-01 12:11] LABS: Glucose,Whole Blood 139 mg/dL (75-99)
[2021-10-01] MEDS ORDERED: fentaNYL (PF) 50 MCG/ML 2 ML AMP ONE (14:09)
[2021-10-01] MEDS ORDERED: PROPOFOL 10 MG/ML 20 ML VIAL IV ONE (14:09)
[2021-10-01] MEDS ORDERED: LIDOCAINE 2% INJ 20 MG/ML (2 ML VIAL) ONE (14:09)
[2021-10-01] MEDS ORDERED: SUCCINYLCHOLINE CHLORIDE 100 MG/5 ML SYR IV ONE (14:09)
[2021-10-01] MEDS ORDERED: MIDAZOLAM 2 MG/2 ML VIAL ONE (14:09)
--- NOTE | 2021-10-01 14:49 | P.PCN ---
Date of Procedure: 10/01/21 Preoperative Diagnosis: History of left piriform sinus cell carcinoma Postoperative Diagnosis: Same Procedure(s) Performed: Microlaryngoscopy with biopsy right piriform sinus Anesthesia: STEFANI Surgeon: Yovanny Hines Estimated Blood Loss (ml): 2 Pathology: other (Left piriform sinus) Condition: stable Disposition: PACU Indications for Procedure: This 70-year-old white male who has history of left piriform sinus/hypopharynx squamous cell carcinoma. He finished radiotherapy and chemotherapy 2011 and most recent PET scan had minimal uptake 3.3 in the left piriform sinus. No gross disease noted however it was felt that he should have evaluation under anesthesia Operative Findings: No gross lesions other than some scarring left piriform sinus but parts sales representative biopsies were taken due to the previous PET scan results Description of Procedure: The patient was brought in the operative suite and placed supine position. Patient underwent induction of general anesthesia with oral endotracheal intubation without difficulty. Patient was prepped and draped in usual aseptic fashion. Tooth guard was placed and direct laryngoscopy was performed with systematic evaluation of base of tongue vallecula both piriform sinuses and post cricoid area. With the left piriform sinus in good visualization the laryngoscope was placed in suspension and the Zeiss microscope was brought into position to evaluate this area further. There appeared to be some mild scar tissue but no gross lesions otherwise. Due to the previous PET scan results it was felt that parts sales representative biopsy should take and therefore multiple microscopic forceps biopsies were taken in the left piriform sinus. Hemostasis was gained spontaneously and was good. The patient was then suctioned in oral gastric fashion and was allowed to emerge from general anesthesia having tolerated procedure well was extubated in the operating suite and transferred to postop recovery area in satisfactory condition.
[2021-10-01 15:22] VITALS: RESP 18
[2021-10-01 15:32] VITALS: BP 146/72; PULSE 56
== END 2021-10-01 15:47 | disposition home or self-care (01) ==
LOC: OR 10:47
PROVIDERS: ATTEND Otolaryngology
DX: Z08 Encounter for follow-up examination after completed treatment for malignant neoplasm (principal); Z85.89 Personal history of malignant neoplasm of other organs and systems; Z92.3 Personal history of irradiation
CPT/HCPCS: 31536; 88305; J2250; J1100; J0690; J2405; J3010; J0330; J2704; J2001

== ENCOUNTER → 2023-04-14 | Outpatient (CLI) | payer MEDICARE | END | disposition home or self-care (01) | LOC: LABWHC1 08:59 | PROVIDERS: ATTEND Radiology Radiation Oncology | DX: Z08 Encounter for follow-up examination after completed treatment for malignant neoplasm (principal); C61 Malignant neoplasm of prostate; C77.9 Secondary and unspecified malignant neoplasm of lymph node, unspecified; C13.2 Malignant neoplasm of posterior wall of hypopharynx; Z85.46 Personal history of malignant neoplasm of prostate; Z79.818 Long term (current) use of other agents affecting estrogen receptors and estrogen levels; Z87.891 Personal history of nicotine dependence; Z85.818 Personal history of malignant neoplasm of other sites of lip, oral cavity, and pharynx; Z98.52 Vasectomy status | CPT/HCPCS: 36415; 84153 ==

== ENCOUNTER → 2023-07-29 | Outpatient (CLI) | payer MEDICARE ==
--- NOTE | 2023-07-29 19:07 | PE ---
EXAMINATION TYPE: PET CT fusion skull to thigh DATE OF EXAM: 07/29/2023 CLINICAL INDICATION:Male, 72 years old with history of C76.0 head and neck ca; TECHNIQUE: Following the intravenous administration of 10.96 mCi of F-18 FDG, whole body images are performed from the skull base to the midthigh. Images are reviewed on the computer in the coronal, axial, and sagittal planes. Reconstructed rotating images are created on independent workstation and reviewed on the computer. A non-contrast CT is performed in conjunction with the PET scan. Glucose level 120 mg/dL CT DLP: 1028 mGycm, Automated exposure control for dose reduction was used. COMPARISON: CT None, PET/CT 07/24/2022, FINDINGS: Mediastinal SUV mean is 2.7. Hepatic parenchyma SUV mean is 3.3. SKULL BASE AND NECK: * No suspicious radiotracer activity. * Unchanged right superficial parotid gland lesion max SUV 3.8 previously 3.9. This is seen dating b ack to 07/13/2020 and is stable in size. * No abnormal FDG activity within the mucosa or left neck. CHEST, MEDIASTINUM, AND HILAR REGION: Similar size of mediastinal lymph nodes which have mildly increased FDG activity on today's exam, exa mples include: * Right low paratracheal lymph node max SUV 4.3, previously 2.0 and measuring 9 mm in short axis. * Subcarinal lymph node max SUV 4.9, previous 2.3. * Right pulmonary hilum lymph node max SUV 6.1, previously 2.4. * Left pulmonary hilum max SUV 5.8, previously 2.4. ABDOMEN AND PELVIS: No suspicious radiotracer activity. MUSCULOSKELETAL STRUCTURES: No suspicious radiotracer activity. Suspected additional injection sites in the anterior thighs of the lower extremities bilaterally SUV 9.6 on the left and 6.4 on the right. OTHER CT: Right upper lobe calcified granuloma Atherosclerosis of the arterial vasculature including the carotid bifurcations and coronary arteries. Mild gynecomastia changes bilaterally. Left renal cys ts. Left nonobstructing renal calculi. Fat-containing inguinal hernias bilaterally. IMPRESSION: 1. Interval increased metabolic activity throughout the mediastinal lymph nodes which is new compare d to prior. Given stable size, differential would include malignancy and/or granulomatous disease. Sh ort-term follow-up CT chest recommended to ensure stability in size. 2. 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
== END | disposition home or self-care (01) ==
LOC: RADPETMAIN 09:17
PROVIDERS: ATTEND Internal Medicine Hematology & Oncology
DX: C76.0 Malignant neoplasm of head, face and neck (principal); K11.8 Other diseases of salivary glands
CPT/HCPCS: 78815; A9552

== ENCOUNTER → 2023-10-24 | Outpatient (CLI) | payer MEDICARE ==
--- NOTE | 2023-10-26 10:04 | PE ---
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 Images are reviewed on the computer in the coronal, axial, and sagittal planes. Reconstructed rotating images are created on independent workstation and reviewed on the computer. A non-contrast CT is performed in conjunction with the PET scan. Glucose level 121 mg/dL CT DLP: 633 mGycm, Automated exposure control for dose reduction was used. COMPARISON: CT None, PET/CT 07/29/2023, FINDINGS: Mediastinal SUV mean is 2.1. Hepatic parenchyma SUV mean is 3.1. SKULL BASE AND NECK: * No suspicious radiotracer activity. * Unchanged right superficial parotid gland lesion max SUV 2.0, previous 3.8, 3.9. This is seen dati ng back to 07/13/2020 and is stable in size. * No abnormal FDG activity within the mucosa or left neck. CHEST, MEDIASTINUM, AND HILAR REGION: Similar size of mediastinal lymph nodes which have mildly increased FDG activity on today's exam, exa mples include: * Right low paratracheal lymph node max SUV 2.8, previously 4.3, 2.0 and measuring 8 mm in short axi s. * Subcarinal lymph node max SUV 3.1, previously 4.9, 2.3. * Right pulmonary hilum lymph node max SUV 3.4, previously 6.1, 2.4. * Left pulmonary hilum max SUV 3.1, previously 5.8,2.4. ABDOMEN AND PELVIS: No suspicious radiotracer activity. MUSCULOSKELETAL STRUCTURES: No suspicious radiotracer activity. Suspected additional injection sites in the anterior thighs of the lower extremities bilaterally SUV 9.6 on the left and 6.4 on the right. OTHER CT: Right upper lobe calcified granuloma Atherosclerosis of the arterial vasculature including the carotid bifurcations and coronary arteries. Mild gynecomastia changes bilaterally. Left renal cys ts. Left nonobstructing renal calculi. Fat-containing inguinal hernias bilaterally. IMPRESSION: 1. No suspicious uptake. 2. Interval decrease in metabolic activity throughout the mediastinal lymph nodes. Given stable size , findings are less likely malignancy and more likely granulomatous disease. Short-term follow-up CT chest recommended to ensure stability in size. 3. 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
== END | disposition home or self-care (01) ==
LOC: RADPETMAIN 11:47
PROVIDERS: ATTEND Internal Medicine Hematology & Oncology
DX: K11.8 Other diseases of salivary glands (principal); C76.0 Malignant neoplasm of head, face and neck
CPT/HCPCS: 78815; A9552

== ENCOUNTER → 2024-04-11 | Outpatient (CLI) | payer MEDICARE | END | disposition home or self-care (01) | LOC: LABWHC1 08:36 | PROVIDERS: ATTEND Radiology Radiation Oncology | DX: Z08 Encounter for follow-up examination after completed treatment for malignant neoplasm (principal); C61 Malignant neoplasm of prostate; C77.9 Secondary and unspecified malignant neoplasm of lymph node, unspecified; C13.2 Malignant neoplasm of posterior wall of hypopharynx; Z85.46 Personal history of malignant neoplasm of prostate; Z98.52 Vasectomy status; Z79.818 Long term (current) use of other agents affecting estrogen receptors and estrogen levels | CPT/HCPCS: 36415; 84153 ==

== ENCOUNTER → 2024-11-09 | Outpatient (CLI) | payer MEDICARE ==
--- NOTE | 2024-11-12 12:22 | PE ---
EXAMINATION TYPE: PET CT fusion skull to thigh DATE OF EXAM: 11/09/2024 CLINICAL INDICATION:Male, 73 years old with history of C76.0 HEAD AND NECK CANCER; TECHNIQUE: Following the intravenous administration of 10.71 mCi of F-18 FDG, whole body images are performed from the skull vertex to the midthigh. Images are reviewed on the computer in the coronal , axial, and sagittal planes. Reconstructed rotating images are created on independent workstation a nd reviewed on the computer. A non-contrast CT is performed in conjunction with the PET scan. Gluco se level 135 mg/dL CT DLP: 1837 mGycm, Automated exposure control for dose reduction was used. COMPARISON: CT 08/06/2020, PET/CT 10/24/2023, 07/29/2023, 07/24/2022, 07/18/2021, 07/13/2020, MRI: None FINDINGS: Mediastinal SUV mean is 2.5. Hepatic parenchyma SUV mean is 2.8. SKULL BASE AND NECK: Unchanged right superficial parotid subcentimeter lesion with a maximum SUV of 3.3, previously 2.0, 3 .8, 3.9. No new abnormal FDG activity. CHEST, MEDIASTINUM, AND HILAR REGION: Stable bilateral hilar and mediastinal subcentimeter short axis calcified lymph nodes. Subcarinal lymph node demonstrates a maximum SUV of 4.6, previously 3.1, 4.9, 2.3. Right pulmonary hilar lymph node demonstrates a maximum SUV of 5.5, previously 3.4, 6.1, 2.4. Left pulmonary hilar lymph node demonstrates a maximum SUV of 5.2, previously 3.1, 5.8, 2.4. ABDOMEN AND PELVIS: No suspicious radiotracer activity. MUSCULOSKELETAL STRUCTURES: Similar focal suspected injection sites in the anterior size of both lower extremities. Demonstrates a maximum SUV of on the left, previously 9.6. Demonstrates a maximum SUV of on the right, previously 6.4. OTHER CT: Bilateral aphakia. Small mucous retention cyst within the inferior left maxillary sinus. Bi lateral carotid bulb calcifications. Bilateral gynecomastia. Atherosclerotic calcification of the aor ta and its branches. Mild cardiomegaly. Calcified granuloma within the right upper lobe. Possible deg enerative changes of the spine. Hepatic steatosis. Nonobstructing left renal calculi with largest guru suring up to 1 cm. Left renal upper pole exophytic simple 3.4 cm cyst. No follow up recommended. Scat tered distal colonic diverticulosis without evidence for acute diverticulitis. Central prostate calci fications. Circumferential wall thickening of the urinary bladder likely related to underdistention. IMPRESSION: 1. No suspicious radiotracer activity to suggest active malignancy. 2. Stable subcentimeter bilateral hilar and mediastinal lymph nodes with calcification. Favored to r epresent granulomatous disease versus less likely malignancy. 3. Unchanged right superficial parotid gland lesion dating back to 07/13/2020. 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 [facility], , 11/12/2024 12:20 PM
== END | disposition home or self-care (01) ==
LOC: RADPETMAIN 11:25
PROVIDERS: ATTEND Internal Medicine Hematology & Oncology
DX: C76.0 Malignant neoplasm of head, face and neck (principal); I89.8 Other specified noninfective disorders of lymphatic vessels and lymph nodes; K11.8 Other diseases of salivary glands
CPT/HCPCS: 78815; A9552

== ENCOUNTER → 2024-12-01 | Outpatient (CLI) | payer MEDICARE ==
--- NOTE | 2024-12-03 15:58 | US ---
EXAMINATION TYPE: US abdomen complete DATE OF EXAM: 12/01/2024 COMPARISON: NONE CLINICAL INDICATION: Male, 73 years old with history of R10.11 RUQ PAIN; TECHNIQUE: Grayscale and color Doppler imaging of the abdomen was performed. FINDINGS: EXAM MEASUREMENTS: Liver Length: 16.7 cm Gallbladder Wall: 0.2 cm CBD: 0.5 cm, color Doppler imaging was utilized to isolate the common bile duct for measurement. Spleen: 9.9 cm Right Kidney: 11.6x6.1x5.6 cm Left Kidney: 11.4x5.5x5.2 cm REAL TIME ANALYST NOTES: Slightly limited exam due to overlying bowel & pt body habitus Pancreas: Tail obscured by overlying bowel gas Liver: Increased attenuation, decreased visualization of vessels suggestive of fatty infiltrate, dif ficult to penetrate Gallbladder: No stones seen Evidence for sonographic Rodríguez's sign: No CBD: wnl Spleen: wnl Right Kidney: small cortical cyst measuring 0.8x1.2x0.9cm. No hydronephrosis. Left Kidney: A couple echogenic foci measuring 1.3 cm and 0.8 cm. No hydronephrosis. Upper IVC: obscured by bowel/gas Abd Aorta: Mild atherosclerotic plaque seen throughout IMPRESSION: 1. Severe hepatic steatosis. Appropriate clinical management is advised. 2. No gallstones or biliary ductal dilatation. 3. Suggestion of a couple nonobstructive left renal stones measuring 0.8 cm and 1.3 cm. [facility], , 12/03/2024 3:55 PM
== END | disposition home or self-care (01) ==
LOC: RADUSWWP 07:57
PROVIDERS: ATTEND Family Medicine
DX: K76.0 Fatty (change of) liver, not elsewhere classified (principal)
CPT/HCPCS: 76700